=== PATIENT | female | born 1985 | race Two or more races ===

== ENCOUNTER 2019-08-24 19:14 | Emergency (ER) | payer MEDICAID ==
[~2019-08-24] VITALS: Ht 162.6 cm; Wt 95.3 kg
[2019-08-24 19:22] VITALS: BP 130/88
[2019-08-24] MEDS ORDERED: diphenhdrAMINE HCL 25 MG CAP PO ONE (19:45)
== END 2019-08-24 23:36 | disposition left against medical advice (07) ==
LOC: ER 19:19
DX: R07.0 Pain in throat (principal); Z53.21 Procedure and treatment not carried out due to patient leaving prior to being seen by health care provider

== ENCOUNTER 2019-09-15 23:41 | Emergency (ER) | payer MEDICAID ==
[~2019-09-15] VITALS: Ht 165.1 cm; Wt 81.6 kg
[2019-09-15 23:42] VITALS: BP 132/80
== END 2019-09-16 02:00 | disposition left against medical advice (07) ==
LOC: EDBD 23:41 → ER 23:44
DX: F10.129 Alcohol abuse with intoxication, unspecified (principal); Z53.21 Procedure and treatment not carried out due to patient leaving prior to being seen by health care provider; Y90.9 Presence of alcohol in blood, level not specified

== ENCOUNTER 2020-05-14 16:37 | Emergency (ER) | payer MEDICAID | END 2020-05-14 16:41 | disposition left against medical advice (07) | LOC: ER 16:37 | DX: R10.2 Pelvic and perineal pain (principal); Z53.21 Procedure and treatment not carried out due to patient leaving prior to being seen by health care provider ==